=== PATIENT | female | born 2000 | race Caucasian/White ===

== ENCOUNTER 2019-02-25 21:25 | Emergency (ER) | payer OTHER ==
[2019-02-25] MEDS ORDERED: IPRATROPIUM/ALBUTEROL 3 ML DEYVIAL ONE (21:31)
[2019-02-25] MEDS ORDERED: IPRATROPIUM/ALBUTEROL 3 ML DEYVIAL IH ONE (21:36)
[2019-02-25] MEDS ORDERED: predniSONE 20 MG TAB PO ONE (22:07)
[2019-02-25] MEDS ORDERED: predniSONE 20 MG TAB ONE (22:08)
--- NOTE | 2019-02-25 22:12 | EDPHY ---
H & P Stated Complaint: asthma exacerbation Time Seen by Provider: 02/25/19 21:49 HPI/ROS: Chief Complaint: Asthma exacerbation HPI: 18-year-old woman with a history of asthma. She is presenting tonight with worsening tightness in her chest and difficulty breathing. Patient states that symptom be getting worse over the last week or so. She has normal triggers of seasonal allergies and upper respiratory infections and has a been having mild upper respiratory infection symptoms lately. She normally takes Singulair and QVAR in addition to her rescue inhaler. She has been using several puffs of her rescue inhaler daily for the last few days. Tonight at dinner time her breathing got worse. She went home at at 9:00 a.m. Took 4 puffs from her albuterol inhaler and lay down but continued to feel tightness in her chest. She does use a spacer with her inhaler. On presentation here patient was complaining of shortness of breath. Nursing staff gave her a DuoNeb and she has had significant relief but is continuing to complain of some tightness. She has been admitted to the hospital twice. She has never been intubated. She is under the care of a airborne operations manager at [facility]. No fevers or chills. She has had a cough which is moderately productive of yellowish sputum. No nausea or vomiting. She has been compliant with her usual control medications. ROS: 10 systems were reviewed and were negative except those elements noted in the HPI. PMH: Asthma Social History: No smoking, occasional alcohol, no recreational drug use Family History: non-contributory Physical Exam: Gen: Awake, Alert, No Distress HEENT: Nose: no rhinorrhea Eyes: PERRLA, EOMI Mouth: Moist mucosa Neck: Supple, no JVD Chest: nontender, no wheeze, prolonged expiratory phase with forced expiration Heart: S1, S2 normal, no murmur Abd: Soft, non-tender, no guarding Back: no CVA tenderness, no midline tenderness Ext: no edema, non-tender Skin: no rash Neuro: CN II-XII intact, Sensation grossly intact, Strength 5/5 in bilateral upper and lower extremities - Personal History LMP (Females 10-55): 8-14 Days Ago Current Tetanus/Diphtheria Vaccine: Yes - Medical/Surgical History Hx Chronic Respiratory Disease: Yes Hx Diabetes: No Hx Cardiac Disease: No Hx Renal Disease: No Hx Cirrhosis: No Hx Alcoholism: No Hx HIV/AIDS: No Hx Splenectomy or Spleen Trauma: No Other PMH: asthma - Social History Smoking Status: Never smoked Constitutional: Initial Vital Signs Temperature (C) 37.3 C 02/25/19 21:30 Heart Rate 87 02/25/19 21:30 Respiratory Rate 18 02/25/19 21:30 Blood Pressure 138/81 H 02/25/19 21:30 O2 Sat (%) 100 02/25/19 21:30 O2 Delivery Mode Room Air Allergies/Adverse Reactions: Penicillins Allergy (Verified 02/25/19 21:27) Home Medications: Medication Instructions Recorded Albuterol 02/25/19 Azithromycin [Zithromax] 250 mg PO DAILY #6 tab 02/25/19 Qvar 80 Redihaler (*) 02/25/19 Singulair 02/25/19 predniSONE 60 mg PO DAILY #15 tab 02/25/19 Medical Decision Making ED Course/Re-evaluation: 18-year-old presents with an asthma exacerbation. She has had a productive cough and she and her mom were concerned about possible pneumonia. They are requesting a prescription for antibiotics. I do not think that this is unreasonable given that she has fairly brittle asthma and does have bronchitis symptoms. Will start on a prednisone for 5 days. I have told him that if she has improved after 3 day she may discontinue. I have referred to Internal Medicine and airborne operations manager for follow-up. Return for any concerns. Patient is at no wheezing here. Has some mildly prolonged forced expiration timing. She is satting 100% on room air. She is not distressed. Patient her mother are in agreement with the plan of treatment. - Data Points Medications Given: Discontinued Medications Albuterol/Ipratropium (Duoneb) 3 ml IH EDNOW ONE Stop: 02/25/19 21:37 Last Admin: 02/25/19 21:37 Dose: 3 ml Prednisone (Prednisone) 60 mg PO EDNOW ONE Stop: 02/25/19 22:08 Last Admin: 02/25/19 22:10 Dose: 60 mg Departure - Departure Disposition: Home, Routine, Self-Care Clinical Impression: Exacerbation of asthma Condition: Good Instructions: Asthma (ED) Additional Instructions: Please continue prednisone for at least 3 days. If you're improved after 3 days you may discontinue. Otherwise continue for a full 5 day course. Follow up with primary care physician in 3-4 days for further evaluation. Return to the emergency department for worsening difficulty breathing, worsening cough, fevers chills, or any other concerns. Referrals: Jonathan Amaral MD [Medical Doctor] - As per Instructions Hamzah Harmon MD [Medical Doctor] - As per Instructions Prescriptions: Azithromycin [Zithromax] 250 mg PO DAILY #6 tab predniSONE 60 mg PO DAILY #15 tab
[2019-02-25 22:58] VITALS: BP 112/65
== END 2019-02-25 22:57 | disposition home or self-care (01) ==
DX: J45.901 Unspecified asthma with (acute) exacerbation (principal); Z79.899 Other long term (current) drug therapy
CPT/HCPCS: J7512